=== PATIENT | female | born 1960 | race Caucasian/White ===

== ENCOUNTER 2017-01-29 21:48 | Emergency (ER) | payer MEDICAID ==
[~2017-01-29] VITALS: Ht 165.1 cm; Wt 59.6 kg
[2017-01-29] MEDS ORDERED: KETOROLAC 30 MG/1 ML IVPush ONE (22:30)
[2017-01-29] MEDS ORDERED: SODIUM CHLORIDE FLUSH 10ML SYR IVF ONE (22:30)
[2017-01-29] MEDS ORDERED: KETOROLAC 30 MG/1 ML ONE (22:33)
[2017-01-29 22:53] LABS: BLOOD UREA NITROGEN 24 mg/dL (7-18)
[2017-01-29] MEDS ORDERED: SODIUM CHLORIDE 0.9% 1,000ML IVBOLUS ONE (23:00)
[2017-01-29 23:26] VITALS: BP 124/75
== END 2017-01-29 23:28 | disposition home or self-care (01) ==
LOC: ED 23:23
DX: M54.5 Low back pain (principal); N39.0 Urinary tract infection, site not specified; N30.90 Cystitis, unspecified without hematuria; F17.210 Nicotine dependence, cigarettes, uncomplicated
CPT/HCPCS: 36415; 74176; 80048; 81001; 82040; 85025; 87086; 87186; 96361; 96374; 99285; J1885; J7030